=== PATIENT | female | born 1960 | race Caucasian/White ===

== ENCOUNTER → 2017-01-31 | Outpatient (CLI) | payer MEDICARE, OTHER ==
[~2017-01-31] MED LIST: ACETAMINOPHEN PO; ACTOS PO; ACTOS15 MG PO; ADVAIR 2501 DISK W/D PO; ALBUTEROL17 G1 IH; ALBUTEROL17 GM INH; ALLEGRA60 M1 PO; ALLERGY10 M2 PO; AMLODIPINE BESYL5 MG PO; ASPIRIN81 M1 PO; ATROVENT NEB; AUGMENTIN PO; AZITHROMYCIN250 MG PO; BENADRYL25 M1 PO; BENZONATATE PO; CARVEDILOL12.5 MG PO; CERTAGEN PO; CHLORTHALIDONE50 M1 PO; COLACE PO; COMBIVENT14.7 GM; COREG12.5 MG PO; COREG3.125 MG PO; ECOTRIN325 MG PO; FIORICET 50-321 EACH PO; FLAGYL PO; FLONASE 0.05% N16 G1; FLONASE16 GM; FORTAMET500 MG PO; GABAPENTIN400 M2 PO; GLUCOVANCE 5/501 TA1 PO; GLUCOVANCE 5/501 TA2 PO; GLUCOVANCE 5/501 TA3; HYDROCODONE PO; INVOKANA100 MG PO; IRON1 TA1 PO; KETOPROFEN PO; KLONOPIN1 MG PO; KOMBIGLYZE XR1 EAC2 PO; LANTUS SOLOSTAR3 ML SUBQ; LANTUS100 U/M1 SQ; LANTUS100 U/ML SQ; LASIX PO; LASIX20 MG PO; LEVAQUIN PO; LEVAQUIN750 MG PO; LEVEMIR FL100 UNIT/1 SUBQ; LIPITOR PO; LIPITOR20 MG PO; LIPITOR80 MG PO; MAVIK4 MG PO; METFORMIN HCL500 M1 PO; MOTRIN100 MG; MOTRIN600 MG; NAPROSYN500 MG PO; NIFEREX-150 CAP1 CAP PO; NORCO 5/325 TAB1 TAB PO; NORCO 7.5/325 T1 TAB PO; NOVOLOG FL100 UNIT/1; NOVOLOG FL100 UNIT/1 SUBQ; NOVOLOG100 U/M2 SQ; OMEPRAZOLE20 M2 PO; PATIENT'S PHARMACY; PHENERGAN PO; PHENERGAN25 MG PO; POLYTRIM EYE DR10 ML OP; PREDNISONE PO; PRILOSEC PO; PRILOSEC20 M1 PO; RENVELA800 MG PO; STERAPRED5 MG/DOSE1 PO; SYMBICORT80 INH; TESSALON200 MG PO; TRAMADOL-APAP1 EACH PO; TRANDOLAPRIL4 MG PO; TYLENOL #3 PO; VICODIN 5/500 T1 TAB PO; VICODIN PO; VITAMIN D-32000 UNI1 PO; VITAMIN D50000 UNIT PO; ZITHROMAX PO; ZITHROMAX1 G/PKT PO; ZOFRAN ODT4 MG PO; [UNRECOGNIZED DRUG - MIXTURE] PO
--- NOTE | ~2017-01-31 | CT71 ---
[facility] A Service of [facility] & [facility] RADIOLOGY TEXT RESULTS PATIENT: ALAN WHITTINGTON LOCATION: [facility] : 56 UNIT #: [id number] AGE: [address]: Partha Machuca MD SEX: F ORDER DR: [id number] [facility] [address] [place], [place] [address] [id number] O MR#: [id number] Acc #: [id number] NAME: ALAN WHITTINGTON. : 1960 SEX: F STUDY DATE/TIME: 01/31/2017 12:41 UNIT: [facility] ROOM: STUDY DESCRIPTION: CT Head Wo Contrast Attending Physician: Partha Machuca M.D. Referring Physician: Partha Machuca M.D. Ordering Physician: Partha Machuca M.D. Primary Care Physician: Generic Doctor Not In System MEDICAL IMAGING REPORT This report is preliminary unless electronic signature is present EXAM CT brain without contrast media. HISTORY SUPPLIED Headaches. Chronic headaches for 2 months. Pain top of head radiating to the temples. TECHNIQUE Axial imaging of the brain was performed without contrast and compared to a prior noncontrast scan of March 23, 2015. NOTE: This CT exam was performed with one or more of the following radiation dose reduction techniques: automatic exposure control, adjustment of mA and/or kV according to patient size, and iterative reconstruction. FINDINGS Ventricular size and configuration is normal for this patient's stated age. No intra or extraaxial mass lesions, fluid collections or mass effect are seen. No focal areas of low attenuation or evidence of acute intracranial hemorrhage. Bone windows are reviewed. The patient does have left frontal and left ethmoid sinus disease. There is a right ethmoid sinus disease and there is evidence of minimal left maxillary disease. CONCLUSIONS 1. Negative noncontrast CT brain. No acute findings. 2. Left frontal, left ethmoid and to a lesser degree right ethmoid and left maxillary sinusitis. Dictated by... Song Stiles M.D. THIS IS AN ELECTRONICALLY VERIFIED REPORT Song Stiles M.D. at 02/03/2017 4:52 PM STS. [facility] A Service of [facility] & [facility] RADIOLOGY TEXT RESULTS PATIENT: ALAN WHITTINGTON LOCATION: [facility] : 56 UNIT #: [id number] AGE: [address]: Partha Machuca MD SEX: F ORDER DR: Homar TD: 01/31/2017 18:42 JOB #: [id number] MEDICAL IMAGING REPORT Page 1 of 1 COPY
== END | disposition home or self-care (01) ==
LOC: CCAT 12:26
DX: R51 Headache (principal); J30.9 Allergic rhinitis, unspecified; J32.4 Chronic pansinusitis
CPT/HCPCS: 70450

== ENCOUNTER 2017-02-28 07:58 | Observation (INO) | payer MEDICARE, OTHER ==
--- NOTE | ~2017-02-28 | CT116 ---
[facility] A Service of [facility] RADIOLOGY TEXT RESULTS PATIENT: ALAN WHITTINGTON LOCATION: [facility] : 56 UNIT #: [id number] AGE: [address]: Keisha Bolanos MD SEX: F ORDER DR: [id number] [facility] [address] [place], [place] [address] [id number] MR#: [id number] Acc #: [id number] NAME: ALAN WHITTINGTON. : 1960 SEX: F STUDY DATE/TIME: 02/28/2017 16:58 UNIT: [facility] ROOM: 5 STUDY DESCRIPTION: CT Soft Tissue Neck Wo Cont Attending Physician: Damian Grande M.D. Ordering Physician: [facility] MEDICAL IMAGING REPORT This report is preliminary unless electronic signature is present EXAM CT neck without contrast HISTORY Headache. Throat pain. Headache for 3 days. FINDINGS Axial images form through the skull base to the ellen without contrast. Multiplanar reconstructed images reviewed at a workstation. This CT exam was performed with one or more of the following radiation dose reduction techniques: automatic exposure control, adjustment of mA and/or kV according to patient size, and iterative reconstruction. FINDINGS The parotid, submandibular and thyroid gland is unremarkable. Small amount of shotty anterior and posterior cervical lymphadenopathy. The anatomic spaces within the head and neck unremarkable. Airway is patent. No focal mass lesion is identified. Upper thorax unremarkable. Cervical spine unremarkable. The skull base appears normal. There is a small amount of atherosclerotic calcification within the right carotid bifurcation. IMPRESSION Negative unenhanced CT neck. Please note, if clinical symptoms persist, follow-up imaging with MR, or contrasted CT may be of benefit. Dictated by... Brian Palacios M.D. THIS IS AN ELECTRONICALLY VERIFIED REPORT [facility] A Service [facility] RADIOLOGY TEXT RESULTS PATIENT: ALAN WHITTINGTON LOCATION: [facility] : 56 UNIT #: [id number] AGE: [address]: Keisha Bolanos MD SEX: F ORDER DR: Brian Palacios M.D. at 03/03/2017 6:06 AM JAKE/susan TD: 02/28/2017 22:45 JOB #: [id number] MEDICAL IMAGING REPORT Page 1 of 1 COPY
--- NOTE | ~2017-02-28 | EKG ---
PATIENT: ALAN WHITTINGTON UNIT #: [id number] Ventricular Rate: 79 BPM Atrial Rate: 79 BPM P-R Interval: 180 ms QRS Duration: 68 ms Q-T Interval: 378 ms QTC Calculation(Bezet): 433 ms P Hollins: 60 degrees Calculated R Hollins: -15 degrees Calculated T Hollins: 35 degrees Diagnosis Line: Normal sinus rhythm Diagnosis Line: Normal ECG Diagnosis Line: When compared with ECG of 21-FEB-2015 16:41, Diagnosis Line: No significant change was found Diagnosis Line: Confirmed by CELINA STERN MD ([id number]) on Diagnosis Line: 03/01/2017 4:24:34 PM INTERPRETING MD: LEENA JUÁREZ
--- NOTE | ~2017-02-28 | CT71 ---
[facility] A Service of [facility] RADIOLOGY TEXT RESULTS PATIENT: ALAN WHITTINGTON LOCATION: [facility] [place] [facility] : 56 UNIT #: [id number] AGE: [address]: Keisha Bolanos MD SEX: F ORDER DR: [id number] [id number] [facility]. [place], [place] [address] [id number] I MR#: [id number] Acc #: [id number] NAME: ALAN WHITTINGTON. : 1960 SEX: F STUDY DATE/TIME: 02/28/2017 16:53 UNIT: [facility] [place] [facility] ROOM: [facility] STUDY DESCRIPTION: CT Head Wo Contrast Attending Physician: Damian Grande M.D. Ordering Physician: Ed Doctor [id number] [facility] Primary Care Physician: No Primary Care Physician MEDICAL IMAGING REPORT This report is preliminary unless electronic signature is present EXAM CT brain without contrast, 02/28/17 COMPARISON 01/31/2017 HISTORY Headache, throat pain for [address] exam was performed with one or more of the following radiation dose reduction techniques: automatic exposure control, adjustment of mA and/or kV according to patient size, and iterative reconstruction. Axial imaging of the brain was performed without contrast media: FINDINGS Ventricular size and configuration is normal. No intra or extraaxial mass lesions, fluid collections or mass effect are seen. There is left ethmoid sinus disease and left frontal sinus disease. CONCLUSION 1. Negative noncontrast CT brain. 2. Left ethmoid and frontal sinusitis Dictated by... Song Stiles M.D. THIS IS AN ELECTRONICALLY VERIFIED REPORT Song Stiles M.D. at 03/03/2017 7:16 AM HUONG/andi [facility] A Service of [facility] RADIOLOGY TEXT RESULTS PATIENT: ALAN WHITTINGTON LOCATION: [facility] [place] [facility] : 56 UNIT #: [id number] AGE: [address]: Keisha Bolanos MD SEX: F ORDER DR: TD: 02/28/2017 21:41 JOB #: [id number] MEDICAL IMAGING REPORT Page 1 of 1 COPY
--- NOTE | ~2017-02-28 | HP ---
Unit #: [id number] #: [id number] Patient: ALAN WHITTINGTON [id number] [address] [place], [place] [address] [id number] I MR#: [id number] NAME: ALAN WHITTINGTON ROOM: [address] Age: 56 Sex: F Admission Date: 02/28/2017 : 1960 Attending Physician: Damian Grande M.D. Primary Care Physician: No Primary Care Physician HISTORY AND PHYSICAL CHIEF COMPLAINT Tongue swelling. HISTORY OF PRESENT ILLNESS The patient is a 56-year-old female with a history of hypertension, diabetes, COPD, hyperlipidemia and anxiety brought to the emergency room complaining of tongue swelling. The patient stated that the patient has been having sore throat since last night and this morning when she woke up, she noted that her tongue was swollen and she was having worsening sore throat. The patient presented to the emergency room. Patient denies any new medications or any procedures in the last few weeks to months. The patient was started on Solu-Medrol, Pepcid and Benadryl and the patient started showing improvement with decrease in tongue swelling and able to tolerate the p.o. intake. The patient denies any nausea, vomiting. The patient also complains of headache associated with tongue swelling. The patient also has soreness at the back of the tongue. The patient was seen by the ER physician, and saw the back of the tongue with a tongue depression, and did not see any swelling or erythema. The patient has been admitted for the above reasons. PAST MEDICAL HISTORY History of hypertension, hyperlipidemia, COPD, anxiety, and diabetes. HOME MEDICATIONS She is on metformin, vitamin, Lasix, Lipitor, Actos, Prilosec, chlorthalidone, Coreg, NovoLog, Levemir and Klonopin. ALLERGIES She has an allergy to morphine. 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 SOCIAL HISTORY She has no history of ever smoking or drinking alcohol. She lives with her . She is a [employer]. FAMILY HISTORY Positive for coronary artery disease, CVA and diabetes. REVIEW OF SYSTEMS Unit #: [id number] #: [id number] Patient: ALAN WHITTINGTON 14-point review of systems performed and only pertinent positive findings are described above. The remaining are negative. PHYSICAL EXAMINATION GENERAL: The patient is lying on the bed not in acute distress. VITALS: Temperature 98.3, pulse 69, respiratory rate 18, blood pressure 164/67, saturating 100% on room air. HEENT: Head atraumatic, normocephalic. Pupils equal, round and reactive to light and accommodation. Positive for tongue swelling. No facial swelling and no maxillary sinus tenderness. NECK: Supple. Patient has a discomfort at the front of the neck, and able to swallow oral liquids. LUNGS: Clear to auscultation. HEART: Regular rate and rhythm. ABDOMEN: Soft. Positive bowel sounds. EXTREMITIES: No cyanosis. No clubbing. NEURO: Alert, awake and oriented. No gross focal motor deficits. PSYCHIATRIC: Mood and affect are appropriate. DIAGNOSTIC STUDIES LABORATORY: Glucose 258, BUN 50, creatinine 1.7, sodium 138, potassium 4, chloride 103, bicarb 23, calcium 8.8, troponin less than 0.05. WBC 10.5, hemoglobin 9.9, hematocrit 31.6, platelets 644. CARDIOVASCULAR: EKG shows normal sinus rhythm with 79 beats per minute. ASSESSMENT AND PLAN 1. Angioedema secondary to unknown etiology. 2. Diabetes mellitus. 3. Hypertension. Plan to admit the patient to Observation. Patient will receive Solu-Medrol, Pepcid and Benadryl. Continue with above cocktail and will check a CT of the neck and the head to rule out any pathology and continue will oral liquids and continue with sliding scale and Accu-Cheks a.c. and h.s. Will hold the Metformin and the Klonopin, and Lasix and Lipitor for now, and further recommendations will follow as more lab results are available. Dictated by Garcia Quezada TD: 02/28/2017 15:27 JOB #: [id number] Unit #: [id number] #: [id number] Patient: ALAN WHITTINGTON HISTORY AND PHYSICAL Page 1 of 1 X X HISTORY AND PHYSICAL
--- NOTE | ~2017-02-28 | DS ---
Unit #: [id number] #: [id number] Patient: ALAN ANDERSON [id number] [address] [address] [id number] I MR#: [id number] NAME: ALAN ANDERSON. ROOM: 565 Age: 56 Sex: F Admission Date: 02/28/2017 : 1960 Discharge Date: 03/01/2017 Attending Physician: Keisha Bolanos M.D. Primary Care Physician: [facility] DISCHARGE SUMMARY PRINCIPAL DIAGNOSES 1. Angioedema of uncertain etiology. 2. Significant steroid-induced hyperglycemia. 3. Diabetes mellitus type 2, insulin-requiring and likely uncontrolled at baseline. 4. Chronic kidney disease stage 3 with baseline creatinine of 1.5. 5. Steroid-induced leukocytosis. 6. Chronic thrombocytopenia, likely secondary to underlying iron deficiency anemia. 7. Chronic headache question stress-induced. 8. Hypertension. 9. Hyperlipidemia. 10. Chronic obstructive pulmonary disease. 11. Anxiety. 12. Mild protein malnutrition. 13. Obesity. 14. Gastroesophageal reflux disease. CONSULTANTS None. DIAGNOSTIC STUDIES IMAGING: CT of the soft tissue of the neck without contrast on February 28, 2017, which was unremarkable. CT of the head without contrast on February 28, 2017 with left ethmoid and frontal sinusitis. CLINICAL HISTORY AND HOSPITAL COURSE Ms. Anderson is 56-year-old who presented to the emergency department with the abrupt onset of tongue swelling. Please refer to H and P for further details. The patient was given steroids and Benadryl in the emergency department and placed in observation for further evaluation. Today the patient's tongue swelling is completely resolved. The etiology of this is unclear to me. She has not been on any new medications, and she does not know of any allergens that she has been around. There is no personal or family history of angioedema in the past. I will note that, due to the Solu-Medrol, the patient is having blood sugars in the 400's to 500's. I suspect that her sugars are uncontrolled at home at baseline, given her presenting blood sugar was 300. I am going to transition to prednisone for a one-time dose tomorrow in addition to some Benadryl, get her sugars down to less than 300, and she can be Unit #: [id number] #: [id number] Patient: ALAN ANDERSON discharged home later today. The patient does have several concerns about some chronic headaches. I think this can all be followed up by her primary care physician. DISCHARGE CONDITION Stable. DISCHARGE STATUS Discharge to home. DISCHARGE MEDICATIONS 1. Prednisone 20 mg 2 tablets p.o. daily on March 02, 2017, then discontinue. 2. Benadryl 25 mg p.o. q.6 hours p.r.n. tongue swelling. Prescription given for #30. 3. Metformin 500 mg b.i.d. 4. Actos 15 mg daily. 5. Lipitor 80 mg at bedtime. 6. Klonopin 1 mg p.o. daily p.r.n. anxiety. 7. Coreg 12.5 mg b.i.d. 8. Lasix 40 mg daily. 9. NovoLog 10 units subcu in the morning and lunch and 18 units at bedtime. 10. Levemir 70 units in morning and 60 units at bedtime. 11. Prilosec 20 mg b.i.d. 12. Vitamin D3 - 2,000 units p.o. daily. DISCHARGE INSTRUCTIONS Patient was instructed to follow a constant carb diet. She can increase her activity as tolerated. Should continue Accu-Cheks a.c. and h.s. at home. FOLLOW-UP Patient will follow up with her PCP at [facility] in 1 week. Dictated by... Keisha Bolanos M.D. [place] TD: 03/03/2017 07:29 JOB #: [id number] DISCHARGE SUMMARY Page 1 of 1 X Keisha Bolanos MD X DISCHARGE SUMMARY
[~2017-02-28 07:58] MED LIST changes: -ACTOS15 MG PO; -BENADRYL25 M1 PO; -FORTAMET500 MG PO; -KLONOPIN1 MG PO; -LEVEMIR FL100 UNIT/1 SUBQ; -LIPITOR80 MG PO; -NOVOLOG FL100 UNIT/1 SUBQ; -PATIENT'S PHARMACY; -PRILOSEC PO; -VITAMIN D-32000 UNI1 PO
[2017-02-28 08:43] LABS: POC - CKMB 1.5 ng/mL (0.0-7.9); POC - TROPONIN <0.05 ng/mL (<=0.05)
[2017-02-28 08:53] LABS: BASOPHIL# 0.2 X10e3 (0-0.3); BASOPHIL% 1.5 % (0-2.5); EOSINOPHIL# 0.4 X10e3 (0-0.7); EOSINOPHIL% 3.7 % (0.0-7.0); HEMATOCRIT 31.6 % (35.0-45.0); HEMOGLOBIN 9.9 gm/dL (12.0-16.0); LYMPHOCYTE# 3.9 X10e3 (1.0-3.5); LYMPHOCYTE% 37.8 % (17.0-45.0); MEAN CELL VOLUME 80.2 FL (83-96); MEAN CORPUSCULAR HEMOGLOBIN 25.2 PG (28-34); MEAN CORPUSCULAR HGB CONC 31.4 g/dL (30-36); MEAN PLATELET VOLUME 9.5 FL (6.5-11.5); MONOCYTE# 0.5 X10e3 (0-1.0); MONOCYTE% 4.6 % (3.0-12.0); NEUTROPHIL# 5.5 X10e3 (1.5-7.1); NEUTROPHIL% 52.4 % (40-75); PLATELET COUNT 644 X10e3 (140-420); RED BLOOD COUNT 3.94 X10e (3.90-5.30); RED CELL DISTRIBUTION WIDTH 17.7 % (11.0-15.5); WHITE BLOOD COUNT 10.5 X10e3 (4.0-10.5)
[2017-02-28 08:54] LABS: DIFF IND NO
[2017-02-28 09:41] LABS: BUN/CREATININE RATIO 29.41; CALCIUM SERUM 8.8 mg/dL (8.4-10.2); CREATININE SERUM 1.7 mg/dL (0.6-1.4); GLOM FILT RATE Estimated 32.7 mL/min (>60)
[2017-02-28] MEDS ORDERED: PATIENT'S PHARMACY (11:57)
[2017-02-28] MEDS ORDERED: FORTAMET500 MG PO (12:00)
[2017-02-28] MEDS ORDERED: LIPITOR80 MG PO (12:01)
[2017-02-28] MEDS ORDERED: VITAMIN D-32000 UNI1 PO (12:01)
[2017-02-28] MEDS ORDERED: LASIX PO (12:01)
[2017-02-28] MEDS ORDERED: ACTOS15 MG PO (12:01)
[2017-02-28] MEDS ORDERED: PRILOSEC PO (12:01)
[2017-02-28] MEDS ORDERED: CHLORTHALIDONE50 M1 PO (12:02)
[2017-02-28] MEDS ORDERED: COREG12.5 MG PO (12:02)
[2017-02-28] MEDS ORDERED: NOVOLOG FL100 UNIT/1 SUBQ (12:07)
[2017-02-28] MEDS ORDERED: LEVEMIR FL100 UNIT/1 SUBQ (12:07)
[2017-02-28] MEDS ORDERED: KLONOPIN1 MG PO (12:08)
[2017-03-01 06:50] LABS: HEMATOCRIT 30.1 % (35.0-45.0); HEMOGLOBIN 9.1 gm/dL (12.0-16.0); MEAN CELL VOLUME 80.5 FL (83-96); MEAN CORPUSCULAR HEMOGLOBIN 24.4 PG (28-34); MEAN CORPUSCULAR HGB CONC 30.3 g/dL (30-36); MEAN PLATELET VOLUME 9.4 FL (6.5-11.5); RED BLOOD COUNT 3.74 X10e (3.90-5.30); RED CELL DISTRIBUTION WIDTH 17.2 % (11.0-15.5)
[2017-03-01 06:56] LABS: WHITE BLOOD COUNT 16.7 X10e3 (4.0-10.5)
[2017-03-01 07:05] LABS: BUN/CREATININE RATIO 30.66; CALCIUM SERUM 8.8 mg/dL (8.4-10.2); CREATININE SERUM 1.5 mg/dL (0.6-1.4); POTASSIUM 5.2 mmol/L (3.5-5.1)
[2017-03-01] MEDS ORDERED: BENADRYL25 M1 PO (16:42)
[2017-03-01] MEDS ORDERED: COREG12.5 MG PO (16:54)
[2017-03-01] MEDS ORDERED: PREDNISONE PO (17:02)
== END 2017-03-01 22:40 | disposition home or self-care (01) ==
LOC: CED 07:58 → CEDOF 12:58 → CED 13:04 → C5C 13:04 → CEDOF 17:52 → C5C 03-01 05:37
PROVIDERS: Emergency Medicine; Internal Medicine
DX: T78.3XXA Angioneurotic edema, initial encounter (principal); E11.65 Type 2 diabetes mellitus with hyperglycemia; Z79.4 Long term (current) use of insulin; D72.828 Other elevated white blood cell count; T38.0X5A Adverse effect of glucocorticoids and synthetic analogues, initial encounter; I12.9 Hypertensive chronic kidney disease with stage 1 through stage 4 chronic kidney disease, or unspecified chronic kidney disease; E11.22 Type 2 diabetes mellitus with diabetic chronic kidney disease; N18.3 Chronic kidney disease, stage 3 (moderate); Z79.84 Long term (current) use of oral hypoglycemic drugs; D69.6 Thrombocytopenia, unspecified; R51 Headache; I10 Essential (primary) hypertension; E78.5 Hyperlipidemia, unspecified; J44.9 Chronic obstructive pulmonary disease, unspecified; F41.9 Anxiety disorder, unspecified; E44.1 Mild protein-calorie malnutrition; E66.9 Obesity, unspecified; K21.9 Gastro-esophageal reflux disease without esophagitis; J32.2 Chronic ethmoidal sinusitis; J32.1 Chronic frontal sinusitis; Z88.5 Allergy status to narcotic agent; Z90.49 Acquired absence of other specified parts of digestive tract; Z90.81 Acquired absence of spleen; Z90.710 Acquired absence of both cervix and uterus
CPT/HCPCS: 70450; 70490; 80048; 82553; 82947; 84484; 85025; 85027; 86850; 86900; 86901; 93005; 96374; 96375; 96376; 99291; G0378; J1200; J1815; J2920; J2930